=== PATIENT | male | born 1995 | race Caucasian/White ===

== ENCOUNTER 2016-08-22 09:43 | Emergency (ER) | payer SELFPAY ==
[~2016-08-22] VITALS: Ht 190.5 cm; Wt 86.2 kg
[2016-08-22 09:54] VITALS: BP 112/44
[2016-08-22] MEDS ORDERED: EYE-STREAM OPHTH SOLUTION 120 ML BOTTLE. OS ONE (10:15)
[2016-08-22] MEDS ORDERED: TETRACAINE 0.5% OPHTH SOLUTION 4ML BOTTLE. OS ONE (10:15)
[2016-08-22] MEDS ORDERED: FLUORESCEIN OPHTH TEST STRIP. OS ONE (10:15)
[2016-08-22] MEDS ORDERED: ERYT1OIN6 OS (10:58)
[2016-08-22] MEDS ORDERED: OFLO5DRO OS (10:58)
--- NOTE | 2016-08-22 10:59 | PHYS DOC ---
Past Medical History Past Medical History: No Pertinent History Past Surgical History: No Surgical History Smoking: Less than 1pk/day Additional Information: 0.5 PPD Alcohol Use: None Drug Use: None Adult General Chief Complaint Chief Complaint: EYE PROBLEMS HPI HPI Patient is a 20 year old male who presents with left eye pain starting last night. He reports photophobia and drainage from the eye. He denies any injury to the eye. It is not itchy. She denies any change in his vision. 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 He does not have a PCP. Review of Systems Review of Systems Constitutional: Denies fever or chills. [] Eyes: Denies change in visual acuity. Reports left eye pain, photophobia, and drainage. HENT: Denies ear pain, nasal congestion or sore throat. [] Integument: Denies rash or skin lesions. [] Neurologic: Denies headache, focal weakness or sensory changes. [] Current Medications Current Medications Current Medications Medications (Trade) Dose Ordered Sig/Joseph Start Time Stop Time Status Last Admin Dose Admin Eye Irrigation Solution (Eye-Stream) 120 ml 1X ONCE 08/22/16 10:15 08/22/16 10:19 DC 08/22/16 10:20 120 ML Fluorescein Sodium (Ful-Anjelica) 1 strip 1X ONCE 08/22/16 10:15 08/22/16 10:19 DC 08/22/16 10:20 1 STRIP Tetracaine HCl (Tetracaine) 1 drop 1X ONCE 08/22/16 10:15 08/22/16 10:19 DC 08/22/16 10:20 1 DROP Allergies Allergies Allergies Coded Allergies Type Severity Reaction Last Updated Verified Penicillins Allergy Severe THROAT SWELLING 08/18/15 Yes Physical Exam Physical Exam Constitutional: Well developed, well nourished, no acute distress, non-toxic appearance. [] HENT: Normocephalic, atraumatic, bilateral external ears normal, oropharynx moist, no oral exudates, nose normal. [] Eyes: PERRLA, EOMI, mildly injected conjunctiva the left eye, no discharge. There is fluorescein uptake over the left iris. There is no foreign body identified. Visual acuity: OD 20/30, OS 20/40, OU 20/25. Skin: Warm, dry, no erythema, no rash. [] Neurologic: Alert and oriented X 3, normal motor function, normal sensory function, no focal deficits noted. [] Psychologic: Affect normal, judgement normal, mood normal. [] Current Patient Data Vital Signs Vital Signs Date Time Temp Pulse Resp B/P Pulse Ox O2 Delivery O2 Flow Rate FiO2 08/22/16 09:54 97.4 65 16 112/44 98 Room Air 97.4 EKG EKG [] Radiology/Procedures Radiology/Procedures [] Course & Med Decision Making Course & Med Decision Making Pertinent Labs and Imaging studies reviewed. (See chart for details) [] Dragon Disclaimer Dragon Disclaimer This electronic medical record was generated, in whole or in part, using a voice recognition dictation system. Departure Departure Impression: Primary Impression: Corneal abrasion Disposition: HOME, SELF-CARE Condition: STABLE Referrals: JEANNE VALDOVINOS MD Patient Instructions: Eye - Corneal Abrasion, [id number] Additional Instructions: You have a scratch on your eye. Please use the prescribed antibiotics to prevent infection. You may use the antibiotic ointment at home or at nighttime. This is more soothing to the eye, however may cause some blurred vision. You may use the antibiotic drops during the daytime or while away from the home. Please follow-up with the fur examiner listed below if you have any vision changes or other complications with your eye. Return to the emergency department if you have any new or concerning symptoms. Scripts Ofloxacin (Ocuflox)5 Ml Drops1-2 Drop OS QID 7 Days Use during the day or while outside the home. Prov:VALENTINA GOLD 08/22/16 Erythromycin Base (Erythromycin)3.5 Gm Oint...g.1 [place] OS QID 7 Days Use at home or at night to help soothe the eye. Prov:VALENTINA GOLD 08/22/16 Problem Qualifiers Primary Impression: Corneal abrasion Encounter type: initial encounter Laterality: left Qualified Code: S05.02XA - Injury of conjunctiva and corneal abrasion without foreign body, left eye, initial encounter VALENTINA GOLD Aug 22, 2016 10:59
== END 2016-08-22 11:08 | disposition home or self-care (01) ==
LOC: ER 09:43
DX: S05.02XA Injury of conjunctiva and corneal abrasion without foreign body, left eye, initial encounter (principal); F17.200 Nicotine dependence, unspecified, uncomplicated; Z88.0 Allergy status to penicillin
CPT/HCPCS: 99284

== ENCOUNTER 2016-12-25 20:08 | Emergency (ER) | payer SELFPAY ==
[~2016-12-25] VITALS: Ht 190.5 cm; Wt 86.2 kg
[~2016-12-25 20:08] MED LIST: ERYT1OIN6 OS; OFLO5DRO OS
[2016-12-25 20:20] VITALS: BP 124/69
[2016-12-25] MEDS ORDERED: ERYT1OIN6 OP (21:26)
[2016-12-25] MEDS ORDERED: AZIT250T6 PO (21:26)
--- NOTE | 2016-12-25 21:26 | PHYS DOC ---
Past Medical History Past Medical History: No Pertinent History Past Surgical History: No Surgical History Alcohol Use: Rarely Drug Use: None Adult General Chief Complaint Chief Complaint: SORE THROAT HPI HPI Patient is a 21 year old male who presents with sore throat and bilateral ear pain for 4 days. Patient is also complaining he woke up this morning and his eyes were crusted shut. He states the left one is still red. Review of Systems Review of Systems Constitutional: Denies fever or chills [] Eyes: redness to both eyes HENT: ear pain and sore throat [] Respiratory: Denies cough or shortness of breath [] Cardiovascular: No additional information not addressed in HPI [] GI: Denies abdominal pain, nausea, vomiting, bloody stools or diarrhea [] : Denies dysuria or hematuria [] Musculoskeletal: Denies back pain or joint pain [] Integument: Denies rash or skin lesions [] Neurologic: Denies headache, focal weakness or sensory changes [] Endocrine: Denies polyuria or polydipsia [] Allergies Allergies Allergies Coded Allergies Type Severity Reaction Last Updated Verified Penicillins Allergy Severe THROAT SWELLING 08/18/15 Yes Physical Exam Physical Exam Constitutional: Well developed, well nourished, no acute distress, non-toxic appearance. [] HENT: Normocephalic, atraumatic, bilateral external ears normal, oropharynx moist, no oral exudates, nose normal. [] Bilateral TM are mildly injected. Eyes: PERRLA, EOMI, left conjunctiva is mildly injected. Neck: Normal range of motion, no tenderness, supple, no stridor. [] Cardiovascular:Heart rate regular rhythm, no murmur [] Lungs & Thorax: Bilateral breath sounds clear to auscultation [] Abdomen: Bowel sounds normal, soft, no tenderness, no masses, no pulsatile masses. [] Skin: Warm, dry, no erythema, no rash. [] Back: No tenderness, no CVA tenderness. [] Extremities: No tenderness, no cyanosis, no clubbing, ROM intact, no edema. [] Neurologic: Alert and oriented X 3, normal motor function, normal sensory function, no focal deficits noted. [] Psychologic: Affect normal, judgement normal, mood normal. [] Current Patient Data Vital Signs Vital Signs Date Time Temp Pulse Resp B/P (MAP) Pulse Ox O2 Delivery O2 Flow Rate FiO2 7/21/17 20:20 98.7 67 16 100 Room Air 98.7 EKG EKG [] Radiology/Procedures Radiology/Procedures [] Course & Med Decision Making Course & Med Decision Making Pertinent Labs and Imaging studies reviewed. (See chart for details) Patient has bilateral otitis media, bacterial conjunctivitis to both eyes. Discharged with Z-Addison. Discharged with erythromycin for conjunctivitis. Follow- up with PCP in 1-2 weeks. Abdoulaye Disclaimer Abdoulaye Disclaimer This electronic medical record was generated, in whole or in part, using a voice recognition dictation system. Departure Departure Impression: Primary Impression: Acute bacterial conjunctivitis Additional Impressions: Pharyngitis, acute Otitis media Disposition: HOME, SELF-CARE Condition: STABLE Referrals: NO PCP (PCP) Follow-up with your doctor in 1-2 weeks Patient Instructions: Bacterial Conjunctivitis, [id number], Otitis Media, Adult, Viral and Bacterial Pharyngitis Additional Instructions: You were seen for otitis media, pharyngitis and bacterial conjunctivitis. Complete your oral antibiotics. You can take Tylenol/Motrin for pain or fever. Use saltwater gargles for sore throat. Use the eardrops as prescribed. Follow- up with your doctor in 1-2 weeks. Scripts Erythromycin Base (Erythromycin) 1 Gm Oint...g. 1 CECILIA OP Q4HRS W/A, #1 MISC Prov: SEAN ESTRADA JEAN CARLOS 12/25/16 Azithromycin (AZITHROMYCIN TABLET) 250 Mg Tablet 1 PKG PO UD, #6 TAB Prov: ALEENAALBERTOMarkosSEAN JEAN CARLOS 12/25/16 Problem Qualifiers Primary Impression: Acute bacterial conjunctivitis Laterality: bilateral Qualified Codes: H10.33 - Unspecified acute conjunctivitis, bilateral Additional Impressions: Pharyngitis, acute Pharyngitis/tonsillitis etiology: unspecified etiology Qualified Codes: J02.9 - Acute pharyngitis, unspecified Otitis media Otitis media type: other nonsuppurative Chronicity: acute Laterality: bilateral Recurrence: not specified as recurrent Qualified Codes: H65.193 - Other acute nonsuppurative otitis media, bilateral SEAN ESTRADA [employer] Dec 25, 2016 21:26
[2016-12-26 10:44] LABS: NEGATIVE OBC STREP NEG; POSITIVE OBC STREP POS
== END 2016-12-25 21:31 | disposition home or self-care (01) ==
LOC: ER 20:08
DX: H10.33 Unspecified acute conjunctivitis, bilateral (principal); J02.9 Acute pharyngitis, unspecified; H65.193 Other acute nonsuppurative otitis media, bilateral; Z88.0 Allergy status to penicillin
CPT/HCPCS: 87070; 87880; 99283